=== PATIENT | male | born 1945 ===

== ENCOUNTER → 2023-06-02 10:47 | Outpatient (BNVA) | payer MEDICARE, SELFPAY | PROVIDERS: PCP Family Medicine; Referring Provider Family Medicine; Visit Provider Student in an Organized Health Care Education/Training Program | DX: I27.20 Pulmonary hypertension, unspecified (principal); J44.9 Chronic obstructive pulmonary disease, unspecified; F17.200 Nicotine dependence, unspecified, uncomplicated; J96.91 Respiratory failure, unspecified with hypoxia; J96.92 Respiratory failure, unspecified with hypercapnia | CPT/HCPCS: 99214 ==